=== PATIENT | female | born 1975 | race Caucasian/White ===

== ENCOUNTER 2020-10-08 06:37 | Outpatient (CLI) | payer OTHER, SELFPAY ==
--- NOTE | 2020-10-08 12:05 | P.NEURO_ITS ---
Neurology EEG Report General Information Date of Study: 10/08/20 TEST EEG DIAGNOSIS seizures CONDITION OF RECORDING awake drowsy and sleep EEG NUMBER 10/08/2020 CLINICAL HISTORY patient reported she started having episodes of losing consciousness about a year ago. Happens several times a month. Had a normal EEG done when they 1st started. EEG DESCRIPTION Basic resting occipital frequency consists of large amount of fairly well-orga nized low to medium voltage 11 to 13 hertz per 2nd alpha admixed with low- voltage beta activity. During drowsiness, low-voltage beta activity seen diffusely. hyperventilation not done. photic stimulation produced normal drive. non paroxysmal. nonfocal. nonlateralizing. IMPRESSION no significant abnormalities noted
== END 2020-10-08 06:38 | disposition home or self-care (01) ==
PROVIDERS: PCP Family Medicine; Visit Provider Family Medicine
DX: R56.9 Unspecified convulsions (principal)
CPT/HCPCS: 95816